=== PATIENT | male | born 2000 | race Two or more races ===

== ENCOUNTER 2021-07-23 08:00 | Outpatient (CLI) | payer OTHER ==
[2021-07-24 01:19] LABS: NEISSERIA GONORRHOEAE DNA NEGATIVE (NEGATIVE)
[2021-07-24 01:30] LABS: CHLAMYDIA TRACHOMATIS DNA POSITIVE (NEGATIVE)
[2021-07-25 12:16] LABS: HEPATITIS C ANTIBODY NON-REACTIVE (NON-REACTIVE)
[2021-07-25 14:56] LABS: HIV AG/AB 4TH GEN NON-REACTIVE (NON-REACTIVE)
[2021-07-27 12:31] LABS: HSV 2 IGG TYPE SPECIFIC AB <0.90 index
== END 2021-07-23 23:59 ==
LOC: LAB.N 08:00
PROVIDERS: ATTEND Registered Nurse
DX: R36.9 Urethral discharge, unspecified (principal); R30.0 Dysuria
CPT/HCPCS: 81599; 86592; 86695; 86696; 86803; 87086; 87389; 87491; 87591; 87661